=== PATIENT | female | born 1935 | race Caucasian/White ===

== ENCOUNTER 2024-02-01 20:01 | Emergency (ER) | payer OTHER ==
[~2024-02-01] VITALS: Ht 160 cm; Wt 65.8 kg
[2024-02-02 00:21] VITALS: BP 154/70; TEMP 97.8; O2SAT 96
== END 2024-02-01 21:40 | disposition home or self-care (01) ==
LOC: ER 20:15
DX: S60.221A Contusion of right hand, initial encounter (principal); S09.8XXA Other specified injuries of head, initial encounter; E11.9 Type 2 diabetes mellitus without complications; Z98.890 Other specified postprocedural states; W01.0XXA Fall on same level from slipping, tripping and stumbling without subsequent striking against object, initial encounter; Y93.89 Activity, other specified; Y92.89 Other specified places as the place of occurrence of the external cause; Y99.8 Other external cause status
CPT/HCPCS: 70450; 73130; A4606; A4663